=== PATIENT | male | born 1995 | race Caucasian/White ===

== ENCOUNTER 2022-02-24 20:10 | Emergency (ER) | payer BC | END 2022-02-24 22:05 | disposition home or self-care (01) | LOC: JD.ED 20:10 | DX: R07.89 Other chest pain (principal); Z88.0 Allergy status to penicillin | CPT/HCPCS: 36415; 71045; 71045-26; 80053; 80307; 83735; 84484; 85025; 85379; 93005; 93010; 99283; 99285-25 ==

== ENCOUNTER 2022-09-04 21:05 | Emergency (ER) | payer BC ==
[2022-09-04 22:32] LABS: CORONAVIRUS COVID-19 NAA NEGATIVE (NEGATIVE)
== END 2022-09-04 23:32 | disposition home or self-care (01) ==
LOC: JD.ED 21:05 → SUPCPDRO 21:05 → JD.ED 23:32
DX: J10.1 Influenza due to other identified influenza virus with other respiratory manifestations (principal); F17.210 Nicotine dependence, cigarettes, uncomplicated; Z88.0 Allergy status to penicillin; Z20.822 Contact with and (suspected) exposure to COVID-19
CPT/HCPCS: 0241U; 99283

== ENCOUNTER 2023-01-21 16:34 | Emergency (ER) | payer BC ==
[2023-01-21] MEDS ORDERED: Sodium Chloride 0.9% 10 ML Syringe FLUSH PRN (16:46)
[2023-01-21] MEDS ORDERED: Ondansetron 4 MG/2 ML SDV IVPUSH ONE (16:46)
[2023-01-21] MEDS ORDERED: HYDROmorphone 0.5 MG/0.5 ML Syringe IVPUSH ONE (16:53)
[2023-01-21] MEDS ORDERED: Sodium Chloride 0.9% 1,000 ML IV SCH (17:00)
[2023-01-21 17:17] LABS: APPEARANCE,URINE CLEAR (Clear); BILIRUBIN,URINE NEGATIVE (Negative); COLOR,URINE YELLOW (Yellow); GLUCOSE,URINE NEGATIVE (Negative); KETONES,URINE NEGATIVE (Negative); LEUKOCYTE ESTERASE,URINE NEGATIVE (Negative); NITRITE,URINE NEGATIVE (Negative); OCCULT BLOOD,URINE NEGATIVE (Negative); PH,URINE 5.5 (5.0-8.0); PROTEIN,URINE NEGATIVE (Negative); UROBILINOGEN,URINE 0.2 (0.2-1.0)
[2023-01-21 17:21] LABS: BASOPHILS ABSOLUTE AUTO 0.03 K/mm3 (0.01-0.08); BASOPHILS PERCENT AUTO 0.4 % (0.1-1.2); EOSINOPHILS ABSOLUTE AUTO 0.16 K/mm3 (0.04-0.54); HEMATOCRIT 46.4 % (40.1-51.0); HEMOGLOBIN 16.3 gm/dl (13.7-17.5); IMMATURE GRAN ABSOLUTE AUTO 0.02 K/mm3 (0.00-0.10); IMMATURE GRAN PERCENT AUTO 0.2 % (<=1.0); LYMPHOCYTES PERCENT AUTO 33.5 % (21.8-53.1); MEAN CORPUSCULAR HEMOGLOBIN 29.8 pg (25.7-32.2); MEAN CORPUSCULAR HGB CONC 35.1 g/dl (32.2-35.5); MEAN CORPUSCULAR VOLUME 84.8 fl (79.0-92.2); MEAN PLATELET VOLUME 9.5 fl (9.4-12.3); MONOCYTES ABSOLUTE AUTO 0.61 K/mm3 (0.30-0.82); MONOCYTES PERCENT AUTO 7.6 % (5.3-12.2); NEUTROPHILS ABSOLUTE AUTO 4.53 K/mm3 (1.78-5.38); NEUTROPHILS PERCENT AUTO 56.3 % (34.0-67.9); PLATELET COUNT,PLT 234 K/mm3 (163-337); RED BLOOD CELL COUNT 5.47 M/mm3 (4.63-6.08); WHITE BLOOD CELL COUNT,WBC 8.05 K/mm3 (4.23-9.07)
[2023-01-21 17:44] LABS: RBC,URINE 0-5 /hpf (0-5); WBC,URINE 0-5 /hpf (0-5)
[2023-01-21 17:45] LABS: BACTERIA,URINE OCCASIONAL /hpf (FEW); MUCUS,URINE NOT SEEN /hpf (FEW); SQUAMOUS EPITHELIAL CELLS,UR NOT SEEN /hpf (0-5)
[2023-01-21 17:49] LABS: ALBUMIN 3.6 g/dl (3.4-5.0); ANION GAP 14.9 (5-15); BILIRUBIN TOTAL 0.4 mg/dL (0.2-1.0); CALCIUM 8.6 mg/dL (8.5-10.1); EST CRCL DRUG DOSING (CG) 126.73 mL/min; POTASSIUM,K 3.9 mEq/L (3.5-5.1); PROTEIN TOTAL,TP 7.4 g/dl (6.4-8.2)
[2023-01-21] MEDS ORDERED: Simethicone 80 MG Tab.Chew PO ONE (18:17)
== END 2023-01-21 18:41 | disposition home or self-care (01) ==
LOC: JD.ED 16:34
DX: R10.9 Unspecified abdominal pain (principal); Z86.16 Personal history of COVID-19; Z88.0 Allergy status to penicillin
CPT/HCPCS: 36415; 74176; 80053; 81001; 85025; 96361; 96374; 96375; 99284; A9270; J1170; J2405; J3490; J7030